=== PATIENT | male | born 1950 | race African-American/Black ===

== ENCOUNTER 2018-09-18 14:41 | Emergency (ER) | payer MEDICARE, OTHER ==
[~2018-09-18] VITALS: Ht 180.3 cm; Wt 99.8 kg
--- NOTE | 2018-09-18 14:58 | Emergency Room Report ---
History of Present Illness General Chief Complaint: Alcohol Intoxication Source: Patient, EMS Present Illness HPI 67-year-old male brought in by EMS for alcohol intoxication and gait instability. Patient reports that he has a history of hypertension, gout, arthritis, and drinks regularly, and has been drinking gin all day. Lump at the back of his head, he also reports his old lady he denies having a headache however, he also denies any neck or back pain, reports no vomiting, reports she' s not on any blood thinners, and is alert and oriented to person, place, situation, and year. Reports he is an alcoholic but does not drink every single day. Allergies: Coded Allergies: No Known Allergies (Unverified , 09/18/18) Patient History Past Medical History: see triage record Reviewed Nursing Documentation: PMH: Agreed; PSxH: Agreed Nursing Documentation-PMH Past Medical History: No History, Except For History Of Psychiatric Problem: Yes - etoh abuse Review of Systems All Other Systems: negative except mentioned in HPI Physical Exam Vital Signs Date Time Temp Pulse Resp B/P (MAP) Pulse Ox O2 Delivery O2 Flow Rate FiO2 09/18/18 14:39 98.1 80 18 132/80 98 Room Air Sp02 EP Interpretation: reviewed, normal General Appearance: no apparent distress - intoxicated, smiling, laughing, smells of alcohol, alert, non-toxic Head: normocephalic Eyes: bilateral eye normal inspection, bilateral eye PERRL, bilateral eye EOMI ENT: normal ENT inspection, hearing grossly normal, normal pharynx, no angioedema, normal voice, moist mucus membranes Neck: normal inspection, full range of motion, supple, no bony tend, supple/ symm/no masses Respiratory: normal inspection, chest non-tender, lungs clear, normal breath sounds, no rhonchi, no respiratory distress, no retraction, no accessory muscle use, no wheezing, speaking full sentences, chest symmetrical, palpation of chest normal Cardiovascular #1: normal inspection, normal peripheral pulses, regular rate, rhythm, no edema, no gallop, no JVD, no murmur, no rub Cardiovascular #2: 2+ radial (R), 2+ radial (L) Gastrointestinal: normal inspection, non tender, soft, no mass, no guarding, no rebound Rectal: deferred Genitourinary: normal inspection, no CVA tenderness Musculoskeletal: back normal, gait/station normal, normal range of motion, non- tender, no calf tenderness Neurologic: alert, oriented x3, responsive, prepared foods supervisor III-XII nml as tested, motor strength/tone normal, sensory intact, speech normal - slightly slurred from EtOH intoxication Psychiatric: judgement/insight normal, memory normal, mood/affect normal, no suicidal/homicidal ideation Skin: normal color, no rash, warm/dry, normal turgor Lymphatic: no adenopathy Medical Decision Making Diagnostic Impression: Primary Impression: Acute alcoholic intoxication ER Course Patient does not have any signs of injury on his head, nor does have any cervical spine deformities or tenderness, although he is intoxicated and therefore cannot use any clinical decision rules, I have an extremely low suspicion for cervical spinal injury, also do not see any signs of trauma anywhere along his skeletal axis nor his head, therefore do not suspect he sustained a life-threatening injury or clinically significant fall. Patient is currently in good spirits as he is acutely intoxicated, however he is slurring his speech and unable to ambulate with a stable gait, therefore basic workup be obtained well where monitoring him. He reports he lives with his significant other, but can't provide that person's information to come pick him up. Will reevaluate. Labs revealed alcohol level 227, tox screen positive for marijuana, otherwise unremarkable laboratory evaluation, head CT with some soft tissue swelling at the right scalp, but clinical examination no acute abrasions or notable there, otherwise head CT normal. Upon reevaluation at 10:10 PM, patient is clinically sober, requesting another sandwich, was given 1 as well as more juice, labs unremarkable other than elevated alcohol and tox screen from 7 hours ago, patient is speaking clearly without any slurring, and is able to ambulate with a stable gait. He'll be discharged at this time. CT/MRI/US Diagnostic Results CT/MRI/US Diagnostic Results : Imaging Test Ordered: ct head noncontrast Impression nad Last Vital Signs Date Time Temp Pulse Resp B/P (MAP) Pulse Ox O2 Delivery O2 Flow Rate FiO2 09/18/18 14:49 80 18 Room Air 09/18/18 14:39 98.1 132/80 98 Disposition: HOME, SELF-CARE NORMAN MASON M.D Sep 18, 2018 14:58
[2018-09-18 15:35] LABS: EOSINOPHILS % (AUTO) 0.9 % (0.0-3.0); HEMATOCRIT 40.3 % (42.0-52.0); HEMOGLOBIN 13.1 G/DL (14.2-18.0); LYMPHOCYTES % (AUTO) 32.9 % (20.0-45.0); MEAN CORPUSCULAR VOLUME 83 FL (80-99); MONOCYTES % (AUTO) 7.6 % (1.0-10.0); NEUTROPHILS % (AUTO) 57.6 % (45.0-75.0); PLATELET COUNT 225 K/UL (150-450); RED BLOOD COUNT 4.85 M/UL (4.70-6.10); RED CELL DISTRIBUTION WIDTH 12.8 % (11.6-14.8); WHITE BLOOD COUNT 8.1 K/UL (4.8-10.8)
[2018-09-18 15:47] LABS: ANION GAP 14 mmol/L (5-15); BLOOD UREA NITROGEN 14 mg/dL (7-18); CARBON DIOXIDE 22 MMOL/L (21-32); CHLORIDE 103 MMOL/L (98-107); CREATININE 1.1 MG/DL (0.55-1.30); POTASSIUM 3.4 MMOL/L (3.5-5.1); SODIUM 139 MMOL/L (136-145)
[2018-09-18 15:53] LABS: ALANINE AMINOTRANSFERASE 19 U/L (12-78); ALBUMIN 3.3 G/DL (3.4-5.0); ALBUMIN/GLOBULIN RATIO 0.7 (1.0-2.7); ALKALINE PHOSPHATASE 97 U/L (46-116); ASPARTATE AMINO TRANSFERASE 20 U/L (15-37); BILIRUBIN,TOTAL 0.5 MG/DL (0.2-1.0)
--- NOTE | 2018-09-18 15:58 | Diagnostic Imaging Report ---
Indications: Altered mental status, alcohol intoxication, trauma Technique: Spiral acquisitions obtained through the brain. Angled axial and coronal 5 x 5 mm slices were reconstructed. Total dose length product 1452.45 mGycm. CTDI vol(s) 70.38 mGy. Dose reduction achieved using automated exposure control Comparison: None. Findings: There is age-related enlargement of the ventricles and, to a lesser extent, and extra axial CSF spaces. No acute intracranial hemorrhage nor edema. No mass effect nor midline shift. There is mild periventricular deep white matter low-attenuation. There is a high right frontal scalp hematoma. This lies orbits are unremarkable. The sinuses are clear. Impression: Age-related changes, as described Negative for acute intracranial bleed or mass effect Evidence of high right frontal scalp soft tissue trauma The CT scanner at [facility] is accredited by the [employer] and the scans are performed using protocols designed to limit radiation exposure to as low as reasonably achievable to attain images of sufficient resolution adequate for diagnostic evaluation.
[2018-09-18 16:08] LABS: APPEARANCE,URINE CLEAR; BILIRUBIN, URINE NEGATIVE (NEGATIVE); COLOR,URINE AMBER; GLUCOSE, URINE (UA) NEGATIVE (NEGATIVE); KETONES,URINE NEGATIVE (NEGATIVE); LEUKOCYTE ESTERASE ,URINE NEGATIVE (NEGATIVE); NITRITE,URINE NEGATIVE (NEGATIVE); PH,URINE 6 (4.5-8.0); PROTEIN,URINE NEGATIVE (NEGATIVE); UROBILINOGEN,URINE 1 MG/DL (0.0-1.0)
[2018-09-18 16:18] VITALS: BP 139/86
[2018-09-18 21:23] VITALS: BP 132/78
[2018-09-19 03:17] VITALS: BP 136/84
[2018-09-19 04:51] VITALS: BP 136/84
== END 2018-09-19 05:00 | disposition home or self-care (01) ==
LOC: EDBD 14:41 → EMR 15:00
DX: F10.129 Alcohol abuse with intoxication, unspecified (principal); I10 Essential (primary) hypertension; M19.90 Unspecified osteoarthritis, unspecified site
CPT/HCPCS: 36415; 70450; 80053; 80307; 81003; 85025; 99284; G0480; 80329; J8499